=== PATIENT | male | born 1975 | race Caucasian/White ===

== ENCOUNTER 2018-01-12 12:27 | Inpatient (IN) | payer MEDICAID ==
[2018-01-12] MEDS: KETOROLAC 30 MG INJ IV (13:01)
[2018-01-12] MEDS: ONDANSETRON 4 MG INJ IV (13:01)
[2018-01-12] MEDS: SOD CHLORIDE 0.9% 1,000 ML IV ×3 (13:01→23:06)
[2018-01-12 13:12] LABS: ADD MAN DIFF? NO
[2018-01-12 13:14] LABS: BASOPHIL # 0.1 10^3/ul (0.0-0.1); BASOPHILS % 0.5 % (0.0-2.0); HEMATOCRIT 38.4 % (42.0-52.0); HEMOGLOBIN 13.1 g/dl (14.0-18.0); LYMPHOCYTES # 0.8 10^3/ul (0.8-2.9); LYMPHOCYTES % 7.4 % (15.0-51.0); MEAN CORPUSCULAR HEMOGLOBIN 31.7 pg (29.0-33.0); MEAN CORPUSCULAR HGB CONC 34.1 g/dl (32.0-37.0); MEAN PLATELET VOLUME 10.5 fl (7.4-10.4); MONOCYTE # 1.4 10^3/ul (0.3-0.9); MONOCYTES % 12.3 % (0.0-11.0); NEUTROPHIL # 8.7 10^3/ul (1.6-7.5); NEUTROPHILS % 78.9 % (39.0-77.0); PLATELET COUNT 122 10^3/UL (140-415); POSITIVE DIFF @See below; RED BLOOD COUNT 4.13 10^6/ul (4.70-6.10); RED CELL DISTRIBUTION WIDTH 13.6 % (11.5-14.5)
[2018-01-12 13:33] LABS: ANION GAP 12 (8-16)
[2018-01-12 13:34] LABS: ALANINE AMINOTRANSFERASE 42 IU/L (13-69); ALBUMIN 2.8 g/dl (3.3-4.9); ALBUMIN/GLOBULIN RATIO 0.96; ALKALINE PHOSPHATASE 128 IU/L (42-121); ASPARTATE AMINO TRANSFERASE 63 IU/L (15-46); BILIRUBIN,INDIRECT 0.8 mg/dl (0-1.1); BILIRUBIN,TOTAL 0.8 mg/dl (0.2-1.3); BLOOD UREA NITROGEN 5 mg/dl (7-20); CALCIUM 7.1 mg/dl (8.4-10.2); CARBON DIOXIDE 24 mmol/L (21-31); CHLORIDE 102 mmol/L (97-110); GLUCOSE 137 mg/dl (70-220); LIPASE 30 U/L (23-300); SODIUM 135 mmol/L (135-144); TOTAL PROTEIN 5.7 g/dl (6.1-8.1)
[2018-01-12 13:39] LABS: POTASSIUM 2.5 mmol/L (3.5-5.1)
[2018-01-12 13:40] LABS: LACTIC ACID 2.1 mmol/L (0.5-2.0)
[2018-01-12 13:44] LABS: TROPONIN-I < 0.010 ng/ml (0.000-0.120)
[2018-01-12] MEDS: SODIUM CHLORIDE 0.9% 1L BAG IV* (13:45)
[2018-01-12] MEDS: POTASSIUM CHLORIDE 50 ML IVPB ×3 (14:20→16:53)
[2018-01-12 14:45] LABS: ADD UMIC YES; UR ASCORBIC ACID NEGATIVE (NEGATIVE); UR BACTERIA FEW /HPF (NONE SEEN); UR BILIRUBIN (Dip) NEGATIVE (NEGATIVE); UR BLOOD (Dip) 1+ mg/dL (NEGATIVE); UR CLARITY SLIGHTLY CLOUDY (CLEAR); UR COLOR YELLOW (YELLOW); UR GLUCOSE (Dip) NEGATIVE (NEGATIVE); UR KETONES (Dip) NEGATIVE (NEGATIVE); UR LEUKOCYTE ESTERASE (Dip) 3+ Leu/ul (NEGATIVE); UR NITRITE (Dip) POSITIVE (NEGATIVE); UR RBC 1 /HPF (0-5); UR SPECIFIC GRAVITY (Dip) 1.006 (1.003-1.030); UR TOTAL PROTEIN (Dip) 2+ mg/dl (NEGATIVE); UR UROBILINOGEN (Dip) NEGATIVE (NEGATIVE); UR WBC 116 /HPF (0-5)
[2018-01-12] MEDS: LORAZEPAM 2 MG INJ IV ×2 (15:03→15:54)
[2018-01-12] MEDS: ACETAMINOPHEN 325 MG TAB PO (15:54)
[2018-01-12] MEDS: CEFTRIAXONE 1 GM/50 ML (PMX) 50 ML IVPB (15:54)
[2018-01-12] MEDS: MULTIVITAMINS 10 ML, THIAMINE 100 MG, FOLIC ACID 1 MG, MAGNESIUM SULFATE 2 GM in SOD CH... IV (15:54)
[2018-01-12] MEDS ORDERED: NA PHOSPHATE/BIPHOS 133 ML ENEMA PR (16:30)
[2018-01-12] MEDS ORDERED: ONDANSETRON 4 MG INJ IV ×2 (16:30)
[2018-01-12] MEDS ORDERED: MAGNESIUM HYDROXIDE 30ML CUP PO (16:30)
[2018-01-12] MEDS ORDERED: NACL 0.9% 3 ML SYG IV (16:30)
[2018-01-12] MEDS ORDERED: hydrALAzine 20 MG INJ IV (16:30)
[2018-01-12] MEDS ORDERED: NITROGLYCERIN (SL) 0.4 MG TAB SL (16:30)
[2018-01-12] MEDS ORDERED: ALBUTEROL/IPRATROPIUM (NEB) 3 ML AMP HHN (16:30)
[2018-01-12] MEDS ORDERED: ACETAMINOPHEN 325 MG TAB PO (16:30)
[2018-01-12] MEDS ORDERED: morphine 2 MG INJ IV (16:30)
[2018-01-12] MEDS ORDERED: LORAZEPAM 2 MG INJ IV ×3 (16:30)
[2018-01-12] MEDS ORDERED: DOCUSATE SODIUM 100 MG CAP PO (16:30)
[2018-01-12 17:15] LABS: LACTIC ACID 1.2 mmol/L (0.5-2.0)
[2018-01-12 17:16] LABS: ETHANOL < 10.0 mg/dl
[2018-01-12 17:21] LABS: FREE T4 (FREE THYROXINE) 0.95 ng/dl (0.64-1.79)
[2018-01-12] MEDS: PIPER-TAZO 3.375 GM IV (PMX) 100 ML IVPB ×2 (19:07→23:07)
[2018-01-12 19:30] LABS: ANION GAP 8 (8-16); BLOOD UREA NITROGEN 6 mg/dl (7-20); CALCIUM 7.3 mg/dl (8.4-10.2); CARBON DIOXIDE 22 mmol/L (21-31); CHLORIDE 108 mmol/L (97-110); CREATININE 0.65 mg/dl (0.61-1.24); GLUCOSE 136 mg/dl (70-220); SODIUM 135 mmol/L (135-144)
[2018-01-12] MEDS: POTASSIUM CHLORIDE 100 ML IVPB ×3 (19:36→23:07)
[2018-01-12 20:32] LABS: LACTIC ACID 0.9 mmol/L (0.5-2.0)
[2018-01-12] MEDS ORDERED: HEPARIN 5,000 UNIT/0.5 ML VIAL SC (21:00)
[2018-01-13] MEDS: ACETAMINOPHEN 325 MG TAB PO ×2 (00:39→17:10)
[2018-01-13 01:43] LABS: LACTIC ACID 1.3 mmol/L (0.5-2.0)
[2018-01-13] MEDS: MAGNESIUM SULFATE 1 GM/D5W 100 ML IVPB (02:00)
[2018-01-13 05:22] LABS: ADD MAN DIFF? NO
[2018-01-13 05:31] LABS: ABNORMAL IP MESSAGE 1; BASOPHILS % 0.2 % (0.0-2.0); EOSINOPHILS % 0.1 % (0.0-7.0); HEMOGLOBIN 12.1 g/dl (14.0-18.0); LYMPHOCYTES # 0.6 10^3/ul (0.8-2.9); LYMPHOCYTES % 5.5 % (15.0-51.0); MEAN CORPUSCULAR HEMOGLOBIN 32.7 pg (29.0-33.0); MEAN CORPUSCULAR HGB CONC 33.6 g/dl (32.0-37.0); MEAN CORPUSCULAR VOLUME 97.3 fl (82.0-101.0); MEAN PLATELET VOLUME 11.4 fl (7.4-10.4); MONOCYTE # 1.1 10^3/ul (0.3-0.9); MONOCYTES % 10.1 % (0.0-11.0); NEUTROPHIL # 8.7 10^3/ul (1.6-7.5); NEUTROPHILS % 83.4 % (39.0-77.0); PLATELET COUNT 114 10^3/UL (140-415); POSITIVE DIFF @See below; RED CELL DISTRIBUTION WIDTH 14.2 % (11.5-14.5)
[2018-01-13 05:31] LABS: WHITE BLOOD COUNT 10.4 10^3/ul (4.8-10.8)
[2018-01-13 05:45] LABS: CHOLESTEROL 106 mg/dl (100-200)
[2018-01-13 05:45] LABS: CHOL/HDL RATIO 8.8 RATIO; HDL CHOLESTEROL 12 mg/dl (27-67); LDL CHOLESTEROL,CALCULATED 41 mg/dl; TRIGLYCERIDES 265 mg/dl (0-149)
[2018-01-13] MEDS: PANTOPRAZOLE (EC) 40 MG TAB PO (05:51)
[2018-01-13] MEDS: PIPER-TAZO 3.375 GM IV (PMX) 100 ML IVPB ×3 (05:51→17:11)
[2018-01-13 05:56] LABS: HEMOGLOBIN A1C 5.9 % (0-5.9)
[2018-01-13 06:03] LABS: ANION GAP 11 (8-16); BLOOD UREA NITROGEN 6 mg/dl (7-20); CALCIUM 7.7 mg/dl (8.4-10.2); CARBON DIOXIDE 22 mmol/L (21-31); CHLORIDE 112 mmol/L (97-110); CREATININE 0.78 mg/dl (0.61-1.24); GLUCOSE 127 mg/dl (70-220); PHOSPHORUS 2.9 mg/dl (2.5-4.9); POTASSIUM 3.5 mmol/L (3.5-5.1); SODIUM 141 mmol/L (135-144)
[2018-01-13] MEDS: MULTIVITAMINS 10 ML, THIAMINE 100 MG, FOLIC ACID 1 MG in SOD CHLORIDE 0.9% 1,000 ML IV (08:32)
[2018-01-13 08:57] LABS: LACTIC ACID 1.2 mmol/L (0.5-2.0)
[2018-01-13 15:28] LABS: LACTIC ACID 1.3 mmol/L (0.5-2.0)
[2018-01-13] MEDS ORDERED: morphine LIQ (10 MG/5 ML) CUP PO (17:00)
[2018-01-14] MEDS: PIPER-TAZO 3.375 GM IV (PMX) 100 ML IVPB ×2 (00:30→06:03)
[2018-01-14] MEDS: HYDROCODONE/APAP (5/325) TAB PO (02:58)
[2018-01-14 05:36] LABS: ADD MAN DIFF? NO
[2018-01-14 05:44] LABS: BASOPHILS % 0.3 % (0.0-2.0); EOSINOPHILS % 0.4 % (0.0-7.0); HEMOGLOBIN 11.1 g/dl (14.0-18.0); LYMPHOCYTES % 10.3 % (15.0-51.0); MEAN CORPUSCULAR HEMOGLOBIN 32.2 pg (29.0-33.0); MEAN CORPUSCULAR HGB CONC 33.6 g/dl (32.0-37.0); MEAN CORPUSCULAR VOLUME 95.7 fl (82.0-101.0); MEAN PLATELET VOLUME 11.4 fl (7.4-10.4); MONOCYTE # 1.2 10^3/ul (0.3-0.9); MONOCYTES % 12.8 % (0.0-11.0); NEUTROPHIL # 7.1 10^3/ul (1.6-7.5); NEUTROPHILS % 75.5 % (39.0-77.0); PLATELET COUNT 130 10^3/UL (140-415); POSITIVE DIFF @See below; RED BLOOD COUNT 3.45 10^6/ul (4.70-6.10); RED CELL DISTRIBUTION WIDTH 14.4 % (11.5-14.5)
[2018-01-14 05:44] LABS: WHITE BLOOD COUNT 9.5 10^3/ul (4.8-10.8)
[2018-01-14 06:30] LABS: ANION GAP 8 (8-16); BLOOD UREA NITROGEN 7 mg/dl (7-20); CALCIUM 7.7 mg/dl (8.4-10.2); CARBON DIOXIDE 22 mmol/L (21-31); CHLORIDE 109 mmol/L (97-110); CREATININE 0.74 mg/dl (0.61-1.24); GLUCOSE 123 mg/dl (70-220); SODIUM 136 mmol/L (135-144)
[2018-01-14 06:35] LABS: POTASSIUM 2.8 mmol/L (3.5-5.1)
[2018-01-14] MEDS: POTASSIUM CHLORIDE (SR) 20 MEQ TAB PO (08:19)
[2018-01-14] MEDS: MULTIVITAMINS 10 ML, THIAMINE 100 MG, FOLIC ACID 1 MG in SOD CHLORIDE 0.9% 1,000 ML IV ×2 (08:22→10:48)
[2018-01-14] MEDS: LEVOFLOXACIN 750 MG TABLET PO (10:48)
[2018-01-14 11:21] LABS: MAGNESIUM 2.1 mg/dl (1.7-2.5)
[2018-01-15] MEDS: LEVOFLOXACIN 750 MG TABLET PO (05:35)
[2018-01-15 06:48] LABS: ADD MAN DIFF? NO
[2018-01-15 06:51] LABS: WHITE BLOOD COUNT 10.6 10^3/ul (4.8-10.8)
[2018-01-15 06:51] LABS: ABNORMAL IP MESSAGE 1; BASOPHILS % 0.4 % (0.0-2.0); EOSINOPHILS # 0.1 10^3/ul (0.0-0.5); EOSINOPHILS % 0.8 % (0.0-7.0); HEMATOCRIT 36.5 % (42.0-52.0); HEMOGLOBIN 12.2 g/dl (14.0-18.0); LYMPHOCYTES # 1.3 10^3/ul (0.8-2.9); LYMPHOCYTES % 12.2 % (15.0-51.0); MEAN CORPUSCULAR HEMOGLOBIN 32.3 pg (29.0-33.0); MEAN CORPUSCULAR HGB CONC 33.4 g/dl (32.0-37.0); MEAN CORPUSCULAR VOLUME 96.6 fl (82.0-101.0); MEAN PLATELET VOLUME 11.8 fl (7.4-10.4); MONOCYTE # 1.7 10^3/ul (0.3-0.9); MONOCYTES % 15.8 % (0.0-11.0); NEUTROPHIL # 7.4 10^3/ul (1.6-7.5); NEUTROPHILS % 69.6 % (39.0-77.0); PLATELET COUNT 185 10^3/UL (140-415); POSITIVE DIFF @See below; RED BLOOD COUNT 3.78 10^6/ul (4.70-6.10); RED CELL DISTRIBUTION WIDTH 14.5 % (11.5-14.5)
[2018-01-15 07:13] LABS: ANION GAP 9 (8-16); BLOOD UREA NITROGEN 8 mg/dl (7-20); CALCIUM 8.5 mg/dl (8.4-10.2); CARBON DIOXIDE 25 mmol/L (21-31); CHLORIDE 110 mmol/L (97-110); CREATININE 0.78 mg/dl (0.61-1.24); GLUCOSE 96 mg/dl (70-220); POTASSIUM 3.6 mmol/L (3.5-5.1); SODIUM 140 mmol/L (135-144)
[2018-01-15] MEDS: MULTIVITAMINS THERAPEUTIC TAB PO (10:00)
[2018-01-15] MEDS: FOLIC ACID 1 MG TAB PO (10:00)
[2018-01-15] MEDS: THIAMINE 100 MG TAB PO (10:01)
== END 2018-01-15 14:00 | disposition home or self-care (01) | DRG 872 ==
LOC: PP2 01-14 01:35 → FTE 12:27 → 6WM 16:12
DX: A41.51 Sepsis due to Escherichia coli [E. coli] (principal); N39.0 Urinary tract infection, site not specified; F10.239 Alcohol dependence with withdrawal, unspecified; F10.229 Alcohol dependence with intoxication, unspecified
CPT/HCPCS: 36415; 71045; 74176; 76705; 80048; 80053; 80061; 80307; 81001; 83036; 83605; 83690; 83735; 84100; 84439; 84443; 84484; 85025; 87040; 93005; 96361; 96365; 96375; 96376; 97110; 97116; 97161; 99285-25